=== PATIENT | female | born 1965 | race Caucasian/White ===

== ENCOUNTER 2017-06-15 15:57 | Emergency (ER) | payer OTHER ==
[2017-06-15 16:13] VITALS: TEMP 98.2
--- NOTE | 2017-06-15 17:02 | EDPHY ---
H & P Time Seen by Provider: 06/15/17 16:25 HPI/ROS: CHIEF COMPLAINT: Cough, chills HISTORY OF PRESENT ILLNESS: 52-year-old female presents with a one-week history of productive cough and chills. Onset of chills, myalgias and fatigue 1 week ago. She developed a cough over the last several days. The cough is productive of yellowish phlegm. She has chest pain with coughing. The no shortness of breath. Tolerating oral fluids well. She has been sleeping most of the day for the past several days. She has a high risk ob and has not received influenza vaccination. REVIEW OF SYSTEMS: Eyes: No visual changes ENT: No sore throat Respiratory: no shortness of breath Gastrointestinal: No nausea, no vomiting, no abdominal pain Genitourinary: no dysuria Skin: No rash Neurological: No headache, no weakness Psychiatric: No depression Past Medical/Surgical History: Denies Social History: bilingual kindergarten teacher Smoking Status: Never smoked Physical Exam: General Appearance: Alert, pleasant, nontoxic-appearing Eyes: Pupils equal and round, no conjunctival pallor or injection ENT, Mouth: Mucous membranes moist, TMs normal Neck: Normal inspection Respiratory: Lungs are clear to auscultation Cardiovascular: Regular rate and rhythm Gastrointestinal: Abdomen is soft and nontender Neurological: A&O, nonfocal, normal gait Skin: Warm and dry Extremities: normal inspection Psychiatric: Mood and affect normal Constitutional: Initial Vital Signs Temperature (C) 36.8 C 06/15/17 16:09 Heart Rate 74 06/15/17 16:09 Respiratory Rate 16 06/15/17 16:09 Blood Pressure 119/85 H 06/15/17 16:09 O2 Sat (%) 94 06/15/17 16:09 O2 Delivery Mode Room Air Allergies/Adverse Reactions: No Known Allergies Allergy (Verified 06/15/17 16:12) Home Medications: Medication Instructions Recorded Hormonereplacement 02/02/16 Medical Decision Making - Diagnostics Imaging Results: Imaging Impressions Chest X-Ray 06/15/17 16:25 Impression: Mild central bronchitis, otherwise negative. Chest x-ray independently reviewed by me reveals no infiltrate. ED Course/Re-evaluation: This patient presents with influenza like symptoms during an influenza epidemic. Given that she had symptoms over the last 5 days, Tamiflu not indicated. No evidence of pneumonia. Departure - Departure Disposition: Home, Routine, Self-Care Clinical Impression: Influenza Condition: Good Instructions: Influenza (ED) Additional Instructions: Ibuprofen 600 mg every 6 hr as needed for myalgias, fever and chills. Drink plenty of fluids. Referrals: Marina Carcamo MD [Primary Care Provider] - As per Instructions
[2017-06-15 17:30] VITALS: BP 111/83; PULSE 75; RESP 18; O2SAT 95
== END 2017-06-15 17:29 | disposition home or self-care (01) ==
DX: J11.1 Influenza due to unidentified influenza virus with other respiratory manifestations (principal)

== ENCOUNTER → 2017-12-26 | Outpatient (CLI) | payer OTHER | LOC: FIMAGING 14:08 | PROVIDERS: ATTEND Orthopaedic Surgery | DX: M79.662 Pain in left lower leg (principal); M71.22 Synovial cyst of popliteal space [Baker], left knee ==

== ENCOUNTER 2018-01-10 09:22 | Inpatient (IN) | payer OTHER ==
--- NOTE | 2018-01-10 09:46 | CPEKG ---
Heart Rate: 71 RR Interval: 845 P-R Interval: 164 QRSD Interval: 90 QT Interval: 416 QTC Interval: 453 P [place]: 63 QRS [place]: 34 T Wave [place]: 5 EKG Severity - ABNORMAL ECG - EKG Impression: SINUS RHYTHM EKG Impression: ABNORMAL T, CONSIDER ISCHEMIA, ANTERIOR LEADS Electronically Signed By: Pedro Dejesus 10-Jan-2018 10:16:36
[2018-01-10] MEDS ORDERED: ONDANSETRON 4 MG/2 ML VIAL IVP ONE (09:55)
[2018-01-10] MEDS ORDERED: NS 1,000 ML IV ONE (09:55)
[2018-01-10 10:05] LABS: PLATELET COUNT 247 10^3/uL (150-400)
[2018-01-10] MEDS ORDERED: IOPAMIDOL (ISOVUE 370) 100 ML BTL IV ONE (10:23)
[2018-01-10] MEDS ORDERED: HEPARIN/DEXTROSE 500 ML IV ONE (11:50)
[2018-01-10] MEDS ORDERED: HYDROmorphONE/DILAUDID 1 MG/ML INJ IVP ONE (12:15)
--- NOTE | 2018-01-10 13:41 | EDPHY ---
H & P Time Seen by Provider: 01/10/18 09:40 HPI/ROS: CHIEF COMPLAINT: Vomiting, weakness, shortness of breath, chest pain HISTORY OF PRESENT ILLNESS: 52-year-old female presents to the emergency department by private vehicle with her sister complaining of multiple episodes of vomiting and feeling weak and short of breath since having right total knee replacement on 01/06/[address] Maldonado. The patient states that she started feeling nauseous the evening after her procedure and has vomited multiple times. Today she felt more weak and was having more shortness of breath and pressure sensation in her chest. No fevers or chills although she has felt tremulous. She denies paresthesias in her upper extremities. She is not allowed to remove the bandage from her right knee as instructed by her orthopedic surgeon. She has some mild diffuse abdominal pain. She has not had a bowel movement since her surgery 5 days ago. REVIEW OF SYSTEMS: Constitutional: No fever, no chills. Eyes: No double or blurry vision. ENT: No sore throat. Respiratory: Short of breath. No cough Cardiac: Chest pressure. Gastrointestinal: Abdominal pain, vomiting. No diarrhea. No bowel movement since surgery. Genitourinary: No dysuria. Musculoskeletal: No neck or back pain. Skin: No rashes. Neurological: No headache. Past Medical/Surgical History: Right total knee replacement 01/06/2018 Social History: Single and lives in [place] Smoking Status: Never smoked Physical Exam: General Appearance: Alert, moderate distress. O2 saturatio was low 80s upon her arrival in the emergency department. Eyes: Pupils equal and round. Extraocular motions are all intact. ENT: Mouth: Mucous membranes moist. Respiratory: No wheezing, rhonchi, or rales, lungs are clear to auscultation. Cardiovascular: Regular rate and rhythm. Gastrointestinal: Abdomen is soft. Mild tenderness with palpation diffusely. There is no masses, rebound or guarding noted. Rectal exam: Performed with nursePanchito, at bedside. Exam reveals gross bloody finger without evidence of stool. Neurological: Alert and oriented x 3, cranial nerves II through XII grossly intact Skin: Right knee is wrapped with Deven bandage. Betadine noted on the skin. Patient declined rest to remove the bandage. Warm and dry, no rashes. Musculoskeletal: Nontender to palpate along the cervical, thoracic or lumbar spine. Neck is supple. Extremities: Limited range of motion of the right knee secondary to recent surgery. Her dressing was left in place per her request. Psychiatric: Patient is oriented X 3, there is no agitation. Constitutional: Initial Vital Signs Temperature (C) 36.6 C 01/10/18 09:23 Heart Rate 79 01/10/18 09:23 Respiratory Rate 16 01/10/18 09:23 Blood Pressure 148/107 H 01/10/18 09:23 O2 Sat (%) 95 01/10/18 09:23 O2 Delivery Mode Room Air Allergies/Adverse Reactions: No Known Allergies Allergy (Verified 01/10/18 09:28) Home Medications: Medication Instructions Recorded Aspirin [Aspirin 81mg (*)] 162 mg PO DAILY 01/10/18 Escitalopram Oxalate [Lexapro] 5 mg PO DAILY 01/10/18 Estradiol [Vivelle-Dot 0.05MG (*)] 0.05 mg TD TuFr@0800 01/10/18 Hydrocodone/APAP 5/325 [Erwin 1 - 2 tab PO Q4-6PRN PRN 01/10/18 5/325 (*)] Meloxicam 15 mg PO DAILY 01/10/18 Ondansetron Odt [Zofran Odt 4 mg 4 mg PO Q6HRS PRN 01/10/18 (*)] Progesterone, Micronized 200 mg PO HS 01/10/18 [Progesterone] traMADol [Ultram 50 mg (*)] 50 mg PO Q6HRS PRN 01/10/18 Medical Decision Making - Diagnostics Imaging Results: Imaging Impressions Chest X-Ray 01/10/18 10:01 Impression: Suspect right lower lobe pneumonia. If there is concern for pulmonary infarction, then consider CT angiography. Chest/Thorax CTA 01/10/18 10:14 Impression: 1. Bilateral pulmonary emboli. 2. Bilateral pleural effusions right greater than left without evidence for pneumonia. Results called and discussed with BRANDO RECINOS at 01/10/2018 11:01 General information for patients regarding this examination can be found at [email or web address]. If you have questions or comments about this report, please contact me at (hospital) or [phone] (cell). Imaging: Discussed imaging studies w/ manager call Radiologist, I viewed and interpreted images myself ED Course/Re-evaluation: 52-year-old female presents to the emergency department feeling short of breath , chest pressure and nausea vomiting. Chest x-ray was initially obtained given her O2 saturation of 80%. Given her recent surgery of the right knee I was concerned about possible pulmonary embolism because of her shortness of breath. CT pulmonary angiogram reveals bilateral small volume PE with bilateral pleural effusions. Possible infarct. No evidence of pneumonia. Case was discussed with Dr. Pedro Dejesus, secondary supervising physician, who did not directly evaluate the patient but agrees with treatment and plan. Discussion was made since the patient has bright red blood per rectum with a hematocrit of 31% where she was 42% preoperatively just 9 days prior of whether to use heparin given her small volume pulmonary embolism. The case was discussed with Dr. Santiago Carrion, hospitalist, who also came to evaluate the patient will admit the patient to PCU. She recommends no bolus of heparin but just IV heparin. This was ordered. Differential Diagnosis: Shortness of breath including but not limited to pulmonary infectious process, COPD, asthma, pulmonary embolus and congestive heart failure. - Data Points Laboratory Results: Laboratory Results 01/10/18 09:43 01/10/18 09:43 01/10/18 01/10/18 01/10/18 11:14 09:48 09:43 WBC RBC Hgb Hct MCV MCH MCHC RDW Plt Count MPV Neut % (Auto) Lymph % (Auto) [place] % (Auto) Eos % (Auto) Baso % (Auto) Nucleat RBC Rel Count Absolute Neuts (auto) Absolute Lymphs (auto) Absolute Monos (auto) Absolute Eos (auto) Absolute Basos (auto) Absolute Nucleated RBC Immature Gran % Immature Gran # Sodium 122 mEq/L L mEq/L (135-145) Potassium 4.0 mEq/L mEq/L (3.3-5.0) Chloride 85 mEq/L L mEq/L (97-110) Carbon Dioxide 28 mEq/l mEq/l (22-31) Anion Gap 9 mEq/L mEq/L (8-16) BUN 11 mg/dL mg/dL (7-23) Creatinine 0.6 mg/dL mg/dL (0.6-1.0) Estimated GFR > 60 Glucose 108 mg/dL H mg/dL (70-100) Calcium 8.6 mg/dL mg/dL (8.5-10.4) POC Troponin I 0.02 ng/mL ng/mL (0.00-0.08) Stool Occult Bld Scrn POSITIVE H (NEGATIVE) 01/10/18 09:43 WBC 6.87 10^3/uL 10^3/uL (3.80-9.50) RBC 3.49 10^6/uL L 10^6/uL (4.18-5.33) Hgb 11.8 g/dL L g/dL (12.6-16.3) Hct 31.8 % L % (38.0-47.0) MCV 91.1 fL fL (81.5-99.8) MCH 33.8 pg pg (27.9-34.1) MCHC 37.1 g/dL H g/dL (32.4-36.7) RDW 12.4 % % (11.5-15.2) Plt Count 247 10^3/uL 10^3/uL (150-400) MPV 10.8 fL fL (8.7-11.7) Neut % (Auto) 71.1 % % (39.3-74.2) Lymph % (Auto) 14.4 % L % (15.0-45.0) [place] % (Auto) 12.5 % % (4.5-13.0) Eos % (Auto) 1.2 % % (0.6-7.6) Baso % (Auto) 0.4 % % (0.3-1.7) Nucleat RBC Rel Count 0.3 % H % (0.0-0.2) Absolute Neuts (auto) 4.88 10^3/uL 10^3/uL (1.70-6.50) Absolute Lymphs (auto) 0.99 10^3/uL L 10^3/uL (1.00-3.00) Absolute Monos (auto) 0.86 10^3/uL H 10^3/uL (0.30-0.80) Absolute Eos (auto) 0.08 10^3/uL 10^3/uL (0.03-0.40) Absolute Basos (auto) 0.03 10^3/uL 10^3/uL (0.02-0.10) Absolute Nucleated RBC 0.02 10^3/uL H 10^3/uL (0-0.01) Immature Gran % 0.4 % % (0.0-1.1) Immature Gran # 0.03 10^3/uL 10^3/uL (0.00-0.10) Sodium Potassium Chloride Carbon Dioxide Anion Gap BUN Creatinine Estimated GFR Glucose Calcium POC Troponin I Stool Occult Bld Scrn Medications Given: Hydromorphone HCl (Dilaudid) 0.2 - 0.4 mg IVP Q4HRS PRN PRN Reason: Pain, Severe Unable to Take PO Stop: 01/20/18 14:05 Last Admin: 01/10/18 17:05 Dose: 0.4 mg Discontinued Medications Hydromorphone HCl (Dilaudid) 0.5 mg IVP EDNOW ONE Stop: 01/10/18 12:16 Last Admin: 01/10/18 12:17 Dose: 0.5 mg Sodium Chloride (Ns) 1,000 mls @ 0 mls/hr IV ONCE ONE PRN Reason: Wide Open Stop: 01/10/18 09:56 Last Admin: 01/10/18 10:04 Dose: 1,000 mls Heparin Sodium (Porcine) (Heparin 50 Units/Ml (Premix)) 500 mls @ 0 mls/hr IV EDNOW ONE; Per Protocol PRN Reason: Protocol Stop: 01/10/18 11:51 Last Admin: 01/10/18 12:15 Dose: 500 mls Ondansetron HCl (Zofran) 4 mg IVP EDNOW ONE Stop: 01/10/18 09:56 Last Admin: 01/10/18 10:04 Dose: 4 mg Point of Care Test Results: Chemistry 01/10/18 09:48 POC Troponin I 0.02 ng/mL ng/mL (0.00-0.08) Departure - Departure Disposition: [facility] Inpatient Acute Clinical Impression: Pulmonary embolism Qualifiers: Pulmonary embolism type: other Chronicity: acute Acute cor pulmonale presence: without acute cor pulmonale Qualified Code(s): I26.99 - Other pulmonary embolism without acute cor pulmonale Anemia Qualifiers: Anemia type: unspecified type Qualified Code(s): D64.9 - Anemia, unspecified Vomiting Qualifiers: Vomiting type: unspecified Vomiting Intractability: non-intractable Nausea presence: with nausea Qualified Code(s): R11.2 - Nausea with vomiting, unspecified Condition: Fair
[2018-01-10] MEDS ORDERED: HYDROmorphONE/DILAUDID 1 MG/ML INJ IVP PRN (14:06)
[2018-01-10] MEDS ORDERED: ONDANSETRON DISINTEGRATING 4 MG TAB PO PRN ×2 (14:06→18:26)
[2018-01-10] MEDS ORDERED: ALBUTEROL 3 ML DEYVIAL IH PRN (14:06)
[2018-01-10] MEDS ORDERED: PROMETHAZINE HCL 25 MG/ML INJ IVP PRN (14:06)
[2018-01-10] MEDS ORDERED: ONDANSETRON 4 MG/2 ML VIAL IVP PRN (14:06)
[2018-01-10] MEDS ORDERED: HEPARIN 10,000 UNIT/10 ML MDV (1,000 UNIT/ML) IVP PRN (14:09)
[2018-01-10] MEDS ORDERED: HEPARIN/DEXTROSE 500 ML IV SCH (14:48)
--- NOTE | 2018-01-10 16:27 | ASMTCMCOM ---
CM Note CM Note Notes: Chart reviewed for discharge planning purposes. 52 year old female admitted via ED for nausea, vomiting, weakness and SOB. TKA on 01/06 and dc'd to home. She is diagnosed with bilateral PE and pleural effusions. Needs TBD at this time. CM to follow. Plan: TBD Date Signed: 01/10/2018 04:26 PM Electronically Signed By:Damaris Elizabeth RN
--- NOTE | 2018-01-10 18:34 | PDGENHP ---
History and Physical - Chief Complaint nausea, chest pain - History of Present Illness 52 yo F with hx of recent right TKA, performed Saturday of this week, who has felt porrly since surgery and presents with chest pressure, persistent nausea and vomiting and sob. She notes she has not been able to eat much since her surgery due to n/v. She has attributed this largely to the pain medications she is on since the surgery. She has not had a BM x 5 days either. She denies fever but has had chills. She does not notice increased chest pain with a deep breath. She has not had any calf pain since the surgery other than pain around the knee. She has had some general abdominal discomfort. History Information - Allergies/Home Medication List Allergies/Adverse Reactions: No Known Allergies Allergy (Verified 01/10/18 09:28) Home Medications: Aspirin [Aspirin 81mg (*)] 162 mg PO DAILY 01/10/18 [Last Taken 01/10/18] Escitalopram Oxalate [Lexapro] 5 mg PO DAILY 01/10/18 [Last Taken 01/10/18] Estradiol [Vivelle-Dot 0.05MG (*)] 0.05 mg TD TuFr@0800 01/10/18 [Last Taken ] Hydrocodone/APAP 5/325 [[place] 5/325 (*)] 1 - 2 tab PO Q4-6PRN PRN 01/10/18 [ Last Taken 01/10/18 08:30] Meloxicam 15 mg PO DAILY 01/10/18 [Last Taken Unknown] Ondansetron Odt [Zofran Odt 4 mg (*)] 4 mg PO Q6HRS PRN 01/10/18 [Last Taken 08:30] Progesterone, Micronized [Progesterone] 200 mg PO HS 01/10/18 [Last Taken ] traMADol [Ultram 50 mg (*)] 50 mg PO Q6HRS PRN 01/10/18 [Last Taken Unknown] I have personally reviewed and updated: family history, medical history, social history, surgical history - Past Medical History no pertinent PMH - Surgical History Additional surgical history: R TKA asHPI. R ACL repair. ankle reconstruction. rotator cuff repair - Family History Positive for: non-pertinent - Social History Smoking Status: Never smoked Alcohol Use: Rarely Drug Use: None Additional social history: patient is a middle school resource teacher Review of Systems Review of Systems: ROS: 10pt was reviewed & negative except for what was stated in HPI & below Physical Exam Physical Exam: Temp Pulse Resp BP Pulse Ox 36.2 C 71 15 128/87 H 99 01/10/18 15:52 01/10/18 15:52 01/10/18 15:52 01/10/18 15:52 01/10/18 15:52 O2 (L/minute) 3 Constitutional: no apparent distress, appears nourished Eyes: PERRL Ears, Nose, Mouth, Throat: moist mucous membranes, hearing normal Cardiovascular: regular rate and rhythym, no murmur, rub, or gallop, No edema Respiratory: no respiratory distress, no rales or rhonchi, clear to auscultation Gastrointestinal: normoactive bowel sounds, soft, non-tender abdomen Genitourinary: no bladder tenderness Skin: warm, normal color Musculoskeletal: full muscle strength Neurologic: AAOx3 Psychiatric: interacting appropriately, not anxious Lab Data & Imaging Review 01/10/18 09:43 01/10/18 09:43 WBC 6.87 10^3/uL (3.80-9.50) 01/10/18 09:43 RBC 3.49 10^6/uL (4.18-5.33) L 01/10/18 09:43 Hgb 11.8 g/dL (12.6-16.3) L 01/10/18 09:43 Hct 31.8 % (38.0-47.0) L 01/10/18 09:43 MCV 91.1 fL (81.5-99.8) 01/10/18 09:43 MCH 33.8 pg (27.9-34.1) 01/10/18 09:43 MCHC 37.1 g/dL (32.4-36.7) H 01/10/18 09:43 RDW 12.4 % (11.5-15.2) 01/10/18 09:43 Plt Count 247 10^3/uL (150-400) 01/10/18 09:43 MPV 10.8 fL (8.7-11.7) 01/10/18 09:43 Neut % (Auto) 71.1 % (39.3-74.2) 01/10/18 09:43 Lymph % (Auto) 14.4 % (15.0-45.0) L 01/10/18 09:43 [place] % (Auto) 12.5 % (4.5-13.0) 01/10/18 09:43 Eos % (Auto) 1.2 % (0.6-7.6) 01/10/18 09:43 Baso % (Auto) 0.4 % (0.3-1.7) 01/10/18 09:43 Nucleat RBC Rel Count 0.3 % (0.0-0.2) H 01/10/18 09:43 Absolute Neuts (auto) 4.88 10^3/uL (1.70-6.50) 01/10/18 09:43 Absolute Lymphs (auto) 0.99 10^3/uL (1.00-3.00) L 01/10/18 09:43 Absolute Monos (auto) 0.86 10^3/uL (0.30-0.80) H 01/10/18 09:43 Absolute Eos (auto) 0.08 10^3/uL (0.03-0.40) 01/10/18 09:43 Absolute Basos (auto) 0.03 10^3/uL (0.02-0.10) 01/10/18 09:43 Absolute Nucleated RBC 0.02 10^3/uL (0-0.01) H 01/10/18 09:43 Immature Gran % 0.4 % (0.0-1.1) 01/10/18 09:43 Immature Gran # 0.03 10^3/uL (0.00-0.10) 01/10/18 09:43 Sodium 122 mEq/L (135-145) L 01/10/18 09:43 Potassium 4.0 mEq/L (3.3-5.0) 01/10/18 09:43 Chloride 85 mEq/L (97-110) L 01/10/18 09:43 Carbon Dioxide 28 mEq/l (22-31) 01/10/18 09:43 Anion Gap 9 mEq/L (8-16) 01/10/18 09:43 BUN 11 mg/dL (7-23) 01/10/18 09:43 Creatinine 0.6 mg/dL (0.6-1.0) 01/10/18 09:43 Estimated GFR > 60 01/10/18 09:43 Glucose 108 mg/dL (70-100) H 01/10/18 09:43 Calcium 8.6 mg/dL (8.5-10.4) 01/10/18 09:43 POC Troponin I 0.02 ng/mL (0.00-0.08) 01/10/18 09:48 Urine Color YELLOW 01/10/18 12:00 Urine Appearance CLEAR 01/10/18 12:00 Urine pH 6.0 (5.0-7.5) 01/10/18 12:00 Ur Specific [place] 1.030 (1.002-1.030) 01/10/18 12:00 Urine Protein NEGATIVE (NEGATIVE) 01/10/18 12:00 Urine Ketones TRACE (NEGATIVE) H 01/10/18 12:00 Urine Blood 3+ (NEGATIVE) H 01/10/18 12:00 Urine Nitrate NEGATIVE (NEGATIVE) 01/10/18 12:00 Urine Bilirubin NEGATIVE (NEGATIVE) 01/10/18 12:00 Urine Urobilinogen 2.0 EU (0.2-1.0) H 01/10/18 12:00 Ur Leukocyte Esterase NEGATIVE (NEGATIVE) 01/10/18 12:00 Urine RBC 1-3 /hpf (0-3) 01/10/18 12:00 Urine WBC 1-3 /hpf (0-3) 01/10/18 12:00 Ur Epithelial Cells TRACE /lpf (NONE-1+) 01/10/18 12:00 Urine Glucose NEGATIVE (NEGATIVE) 01/10/18 12:00 Stool Occult Bld Scrn POSITIVE (NEGATIVE) H 01/10/18 11:14 Patient ABO/Rh O POSITIVE 01/10/18 11:20 Visualized and Interpreted Chest x-ray results: Yes Chest X-Ray results: infiltrate Visualized and Interpreted imaging results: Yes Interpretation: CTA chest: bilateral PE, bilateral pleural effusions Visualized and Interpreted EKG results: Yes EKG Interpretation: Positive for: normal sinsus rhythm, T waves inversion Assessment & Plan Assessment: Pulmonary embolism (Acute) Anemia (Acute) Vomiting (Acute) 52 yo F with recent R TKA presenting with bilateral PE and new onset anemia with bloody stool on rectal exam # bilateral PE: acute, following recent TKA and likely related to same. Patient only with asa as DVT ppx post operatively. Started on heparin gtt with concerns for possible concurrent GI bleed as next. Will monitor q4 hour h/h. If evidence of active bleed will need to dc AC and place IVC filter. US BLE pending. Will get echocardiogram to eval for evidence of right heart strain. # GI bleed: patient did have some blood in rectum noted on exam but no evidence at this point of active GI bleed with normal vital signs and no stool output. Query if this were a recent bleed, but obviously given need for AC as above high risk for bleeding now on AC. Will monitor q6 hour h/h and if dropping or if evidence of active bleed will dc heparin and would need to consult GI. # acute anemia: in the post operative setting and with rectal blood as above, monitoring, no indication for transfusion currently # post recent R TKA: PT/OT, doing well currently # n/v: has resolved, perhaps related to pain medication, concerning in setting of GI bleed but per patient no bloody or coffee ground appearing emesis # IP status, high risk with multiple active medical issues as above Patient new to my care. Old records reviewed and summarized as above. Care plan reviewed with ER doctor.
[2018-01-10] MEDS: traMADol 50 MG TAB PO PRN (19:51)
[2018-01-10] MEDS: PROGESTERONE,MICR 100 MG CAP PO SCH (21:35)
[2018-01-10] MEDS: oxyCODONE IR 5 MG TAB PO PRN (21:35)
[2018-01-11] MEDS: oxyCODONE IR 5 MG TAB PO PRN (01:53)
[2018-01-11 01:59] LABS: PLATELET COUNT 290 10^3/uL (150-400)
[2018-01-11] MEDS: traMADol 50 MG TAB PO PRN (05:53)
--- NOTE | 2018-01-11 07:41 | PDMN ---
Medical Necessity Medical necessity: MCG M290 PE- A-4 days: bilat. PE acute, bilat pleural effusions R > L , following recent sgy ( TKA) also with GIB, acute anemia, - anticipate > 2 midnights ongoing med nec care eval and tx
[2018-01-11] MEDS: ESCITALOPRAM OXALATE 10 MG TAB PO SCH (08:15)
[2018-01-11] MEDS ORDERED: LACTULOSE 20 GM/30 ML UDCUP PO PRN (08:44)
[2018-01-11] MEDS ORDERED: POLYETHYLENE GLYCOL 3350 17 GM PKT PO PRN (08:44)
[2018-01-11] MEDS ORDERED: MAGNESIUM HYDROXIDE 30 ML UDCUP PO PRN (08:44)
[2018-01-11] MEDS ORDERED: BISACODYL 10 MG SUPP PR PRN (08:44)
[2018-01-11] MEDS: ACETAMINOPHEN 325 MG TAB PO PRN ×3 (10:54→20:05)
[2018-01-11] MEDS: SENNOSIDES/DOCUSATE SODIUM TAB PO SCH ×2 (10:54→20:06)
[2018-01-11] MEDS ORDERED: SODIUM CL NASAL 45 ML BTL EACHNARE PRN (11:55)
--- NOTE | 2018-01-11 12:01 | ECHO ---
[email or web address] [address] [address] Main: [phone] Fax: [email or web address] Echocardiogram Name: FADIA MCLAUGHLIN MR#: [id number] Study Date: 01/11/2018 Study Time: 09:46 AM Date of : 1965 Age: 52 year(s) Height: 175.3 cm (69 in.) Weight: 79.38 kg (175 lb.) BSA: 1.95 m2 Gender: Female Examination: Echo Indication: PE, Pleural Effusion Image Quality: Adequate Contrast: Requested by: Santiago Carrion BP: 129 mmHg/94 mmHg Heart Rate: Rhythm: Indication: PE, Pleural Effusion Procedure Staff Coverage Specialist: Ni Hogue RDCS Reading Physician: Chang Ruano MD Requesting Provider: Conclusions: Normal global systolic LV function. Normal diastolic LV function. Moderate mitral valve regurgitation is present. Mild tricuspid regurgitation is present. Based on moderate mitral regurgitation, a repeat echo may be considered in 1 yr unless there is a change in clinical status. Measurements: Chambers Valvular Assessment AV/MV Valvular Assessment TV/PV Normal Normal Normal Name Value Range Name Value Range Name Value Range Ao Alyx (2D): 3.1 cm (1.4 cm-2.6 AV Vmax: 1.50 m/s (1 m/s-1.7 TR Vmax: 2.43 mm/s ( - ) cm) m/s) TR PGmax: 24 mmHg ( - ) IVSd (2D): 1.0 cm (0.6 cm-1.1 AV maxP mmHg ( - ) syst. PAP: 29 mmHg ( - ) cm) AV meanP mmHg ( - ) PV Vmax: 0.91 m/s (0.6 m/s-0.9 LVDd (2D): 4.8 cm (3.9 cm-5.3 ZAYRA (VTI): 2.1 cm ( - ) m/s) cm) MV E Vmax: 0.82 m/s ( - ) PV PGmax: 3 mmHg ( - ) LVDs (2D): 3.5 cm (2.1 cm-4 MV A Vmax: 0.62 m/s ( - ) cm) MV E/A: 1.32 ( - ) LVPWd (2D): 0.9 cm ( - ) MV PHT: 0.054 s ( - ) LVOTd 2.1 cm 2.1 cm mm MVA (PHT): 4.1 s ( - ) LVEF (BP): 58 % (>=55 %) RVDd(2D): 2.6 cm (1.9 cm-3.8 cmmm) Continued Measurements: Chambers Valvular Assessment AV/MV Valvular Assessment TV/PV Name Value Name Value Name Value LADs: 3.8 cm MV DecTime: 151 m/s CVP (est.): 5 mmHg Patient: FADIA MCLAUGHLIN Study Date: 01/11/2018 Page 1 of 2 09:46 AM LADs Lon.1 cm MV E' Septal: 0.11 m/s LA Area: 18.9 cm2 MV E/E' Septal: 7.40 LA Volume: 54 ml MV E/E' Lateral: 5.80 LA Volume Index: 27.7 ml/m2 MR ERO: 0.240 cm2 RA Area: 18.4 cm2 MR PISA radius: 7 mm MR Reg. Volume: 41 ml Additional Vessels Name Value Ao Ascendin.2 cm Findings: Left Ventricle: Normal size left ventricle. No LV hypertrophy. Normal global systolic LV function. EF is 58 %. No regional wall motion abnormality. Normal diastolic LV function. Right Ventricle: Normal size right ventricle. Normal RV function. Left Atrium: The left atrium is normal in size. Right Atrium: The right atrium is normal in size. Mitral Valve: The mitral valve is normal in appearance and function. No mitral stenosis is present. Moderate mitral valve regurgitation is present. Aortic Valve: The aortic valve is tri-leaflet. There is no significant aortic valve regurgitation. No aortic valve stenosis is present. Tricuspid Valve: The tricuspid valve is normal in appearance and function. Mild tricuspid regurgitation is present. The pulmonary artery pressure is normal. Right ventricular systolic pressure measures 29mmHg. Pulmonic Valve: The pulmonic valve is normal in appearance and function. There is no pulmonic regurgitation seen. Aorta: The aorta is normal. Normal size aortic root measuring 3.1 cm. Normal size ascending aorta measuring 3.2 cm. Pericardium: No pericardial effusion. No pleural effusion. Exam Comments: Patient is supine due to wrapped and propped leg. (No Signature Object) Patient: FADIA MCLAUGHLIN Study Date: 01/11/2018 Page 2 of 2 09:46 AM [id number]
[2018-01-11] MEDS: ENOXAPARIN 80 MG/0.8 ML SYR SC SCH ×2 (12:14→20:07)
[2018-01-11] MEDS ORDERED: MBX SOLN 30 ML BOTTLE PO PRN (13:48)
--- NOTE | 2018-01-11 14:57 | HOSPPROG ---
Hospitalist Progress Note Assessment/Plan: 52 yo F with recent R TKA presenting with bilateral PE and new onset anemia with bloody stool on rectal exam # bilateral PE: acute, following recent TKA and likely related to same. Patient only with asa as DVT ppx post operatively. Started on heparin gtt with concerns for possible concurrent GI bleed as next, no decrease in h/h overnight and no e/ o active bleed as next. Transitioning to lovenox and coumadin today, discussed AC options with her at length. No DVT on the leg that was able to have US, echo without right heart strain. # ? GI bleed: patient did have some blood in rectum noted on exam but no evidence of active GI bleed and stable h/h on AC. Unclear what the reason for rectal blood was. # acute anemia: in the post operative setting and with rectal blood as above, stable on AC # post recent R TKA: PT/OT, doing well currently # n/v: has resolved, perhaps related to pain medication, concerning in setting of GI bleed but per patient no bloody or coffee ground appearing emesis # IP status, high risk with multiple active medical issues as above Care plan reviewed with patients sister present at bedside and with father over the phone Subjective: no significant overnight events, patient feeling a bit better today , pain is decreased, breathing easier Objective: Vital Signs Temp Pulse Resp BP Pulse Ox 37.0 C 67 17 130/86 H 94 01/11/18 11:41 01/11/18 11:41 01/11/18 11:41 01/11/18 11:41 01/11/18 11:41 Laboratory Results 01/11/18 08:12 01/11/18 01:45 01/10/18 01/11/18 01/12/18 05:59 05:59 05:59 Intake Total 2600 Balance 2600 Constitutional: no apparent distress, appears nourished Eyes: PERRL Ears, Nose, Mouth, Throat: moist mucous membranes, hearing normal Cardiovascular: regular rate and rhythym, no murmur, rub, or gallop, No edema Respiratory: no respiratory distress, no rales or rhonchi, clear to auscultation Gastrointestinal: normoactive bowel sounds, soft, non-tender abdomen Genitourinary: no bladder tenderness Skin: warm, normal color Musculoskeletal: full muscle strength Neurologic: AAOx3 Psychiatric: interacting appropriately, not anxious - Time Spent With Patient Time Spent with Patient: greater than 35 minutes Time Spent with Patient: Greater than 35 minutes spent on this patients care, greater than 50% of time spent counseling, educating, and coordinating care regarding the above mentioned plan. ICD10 Worksheet Patient Problems: Problems Problem Status Onset Anemia Acute Pulmonary embolism Acute Vomiting Acute
[2018-01-11] MEDS ORDERED: WARFARIN SODIUM 5 MG TAB PO SCH (16:00)
[2018-01-11] MEDS: PROGESTERONE,MICR 100 MG CAP PO SCH (20:06)
[2018-01-11] MEDS ORDERED: traZODone 50 MG TAB PO SCH (21:00)
[2018-01-12] MEDS: ACETAMINOPHEN 325 MG TAB PO PRN ×3 (00:11→08:33)
[2018-01-12 04:47] LABS: INR 1.08 (0.83-1.16); PROTIME(PATIENT) 14.2 SEC (12.0-15.0)
[2018-01-12] MEDS: ENOXAPARIN 80 MG/0.8 ML SYR SC SCH (08:21)
[2018-01-12] MEDS: ESCITALOPRAM OXALATE 10 MG TAB PO SCH (08:22)
[2018-01-12] MEDS: SENNOSIDES/DOCUSATE SODIUM TAB PO SCH (08:41)
[2018-01-12] MEDS ORDERED: oxyCODONE IR 5 MG TAB PO ONE (09:31)
[2018-01-12] MEDS ORDERED: oxyCODONE IR 5 MG TAB PO PRN (09:32)
--- NOTE | 2018-01-12 10:40 | ASMTCMCOM ---
CM Note CM Note Notes: Pt improving but DC needs remain TBD. NO PT/OT evals yet. CM will continue to follow. Date Signed: 01/12/2018 10:40 AM Electronically Signed By:Luci Guidry LCSW
[2018-01-12 11:37] VITALS: BP 120/70
--- NOTE | 2018-01-12 11:47 | PDDCSUM ---
Discharge Summary Discharge Summary: Dates of service 01/10-01/12/18 Consultations: none Procedures: CTA chest Hospital course by problem: 52 yo F with recent R TKA presenting with bilateral PE and new onset anemia with bloody stool on rectal exam # bilateral PE: acute, following recent TKA and likely related to same. Patient only with asa as DVT ppx post operatively. Started on heparin gtt with concerns for possible concurrent GI bleed as next, no decrease in h/h overnight and no e/ o active bleed as next. dc home on lovenox and coumadin to f/u at coumadin clinic. She had no e/o right heart strain, no DVT in left leg (unable to do right given recent surgery) # ? GI bleed: patient did have some blood in rectum noted on exam but no evidence of active GI bleed and stable h/h on AC. Unclear what the reason for rectal blood was but discussed with patient consideration for colonoscopy to be performed in near future # acute anemia: in the post operative setting and with rectal blood as above, stable on AC so far, recommending f/u with PCP for repeat cbc in coming week # post recent R TKA: PT/OT, doing well currently # n/v: has resolved, perhaps related to pain medication, concerning in setting of GI bleed but per patient no bloody or coffee ground appearing emesis dc home in good condition items for follow up: --monitoring of INR on coumadin with goal of 2-3 --f/u anemia, recommend repeat cbc in next week --consider op colonoscopy > 35 min spent in dc more than half in coordination of care
--- NOTE | 2018-01-12 12:50 | ASMTCMCOM ---
CM Note CM Note Notes: Patient has been medically cleared for discharge. No needs identified. CM available should needs arise. Plan: Home independently with family support. Date Signed: 01/12/2018 12:49 PM Electronically Signed By:Damaris Elizabeth RN
--- NOTE | 2018-01-12 12:50 | ASMTLACE ---
[facility] Length of stay for Answers: 2 days current admission Acuity / Level of Answers: Yes Care: Did the patient have an inpatient admission? Comorbidities - select Answers: Other Notes: Bilateral PEs, anemia all that apply # of Emergency department Answers: 1-2 visits in the last 6 months Score: 7 Date Signed: 01/12/2018 12:50 PM Electronically Signed By:Damaris Elizabeth RN
[2018-01-14] MEDS ORDERED: ESTRADIOL VIVELLE 0.05 MG PATCH TD SCH (08:00)
== END 2018-01-12 13:42 | disposition home or self-care (01) | DRG 176 ==
LOC: F2W 13:20
PROVIDERS: ADMIT Internal Medicine; ATTEND Internal Medicine
DX: I26.99 Other pulmonary embolism without acute cor pulmonale (principal); J90 Pleural effusion, not elsewhere classified; D62 Acute posthemorrhagic anemia; E87.1 Hypo-osmolality and hyponatremia; K62.5 Hemorrhage of anus and rectum; R11.2 Nausea with vomiting, unspecified; Z79.82 Long term (current) use of aspirin; Z96.651 Presence of right artificial knee joint; Z98.890 Other specified postprocedural states
CPT/HCPCS: 84484-PO; 85520-90; 96374; J1170; J1644; J1650; J2405; Q9967

== ENCOUNTER → 2018-03-05 | Outpatient (CLI) | payer OTHER | LOC: FIMAGING 14:13 | PROVIDERS: ATTEND Family Medicine | DX: M79.661 Pain in right lower leg (principal); I26.99 Other pulmonary embolism without acute cor pulmonale ==

== ENCOUNTER → 2018-09-02 | Outpatient (CLI) | payer OTHER | LOC: FIMAGING 14:59 | PROVIDERS: ATTEND Family Medicine | DX: N63.0 Unspecified lump in unspecified breast (principal) ==